=== PATIENT | female | born 1985 | race Caucasian/White ===

== ENCOUNTER 2018-12-12 01:52 | Emergency (ER) | payer OTHER ==
[2018-12-12 02:04] VITALS: O2SAT 100
[2018-12-12] MEDS ORDERED: Sodium Chloride 0.9% 500 ML IV ONE ×2 (02:24→02:33)
[2018-12-12] MEDS ORDERED: DiphenhydrAMINE 50 mg/ml Inj IVP STA (02:24)
[2018-12-12] MEDS ORDERED: DiphenhydrAMINE 50 mg/ml Inj ONE (02:32)
--- NOTE | 2018-12-12 03:21 | C.PDOC ---
History Of Present Illness 33 year old female, 17 weeks , with PMHx of migraine presents to the ED c/o frontal headache associated with nausea for the past 4 days. Patient was advised by OBGYN to take Tylenol every 4 hours which helped at first, but patient reports no relief now. Patient states she has been juggling school and taking care of her other kids, unsure if stress is triggering her headache. Patient also c/o photophobia. Patient denies fever, chills, neck pain, CP, SOB, palpitations, rash, weakness, numbness. No OB c/o at this time. Time Seen by Provider: 12/12/18 02:07 Chief Complaint (Nursing): Headache History Per: Patient History/Exam Limitations: no limitations Onset/Duration Of Symptoms: Days (4) Current Symptoms Are (Timing): Still Present Quality: "Pain" Preceeding Symptoms: Known Migraine Symptoms Associated Symptoms: Photophobia, Nausea Recent travel outside of the [place]: No Additional History Per: Patient Past Medical History Reviewed: Historical Data, Nursing Documentation, Vital Signs Vital Signs: Last Vital Signs Temp 98.4 F 12/12/18 02:01 Pulse 84 12/12/18 02:01 Resp 20 12/12/18 02:01 BP 113/72 12/12/18 02:01 Pulse Ox 100 12/12/18 02:01 - Medical History PMH: No Chronic Diseases Surgical History: No Surg Hx Family History: States: Unknown Family Hx - Social History Hx Alcohol Use: No Hx Substance Use: No - Immunization History Hx Tetanus Toxoid Vaccination: No Hx Influenza Vaccination: No Hx Pneumococcal Vaccination: No Review Of Systems Constitutional: Negative for: Fever, Chills Eyes: Positive for: Vision Change Cardiovascular: Negative for: Chest Pain, Palpitations Respiratory: Negative for: Cough, Shortness of Breath Gastrointestinal: Positive for: Nausea. Negative for: Vomiting, Abdominal Pain Musculoskeletal: Negative for: Neck Pain Skin: Negative for: Rash Neurological: Positive for: Headache. Negative for: Weakness, Numbness, Dizziness Physical Exam - Physical Exam Appears: Non-toxic, No Acute Distress Skin: Normal Color, Warm, Dry Head: Atraumatic, Normacephalic Eye(s): bilateral: Normal Inspection, PERRL, EOMI Oral Mucosa: Moist Neck: Normal ROM, No Midline Cervical Tenderness, Supple Chest: Symmetrical Cardiovascular: Rhythm Regular Respiratory: Normal Breath Sounds, No Rales, No Rhonchi, No Wheezing Gastrointestinal/Abdominal: Soft, No Tenderness, No Guarding, No Rebound Extremity: Normal ROM, No Tenderness, No Swelling Neurological/Psych: Oriented x3, Normal Speech, Normal Cognition, Other (non focal) Gait: Steady ED Course And Treatment O2 Sat by Pulse Oximetry: 100 (ON RA) Pulse Ox Interpretation: Normal Progress Note: Plan: - Bendaryl 25 mg IVP. - Reglan 10 mg IVP. - IV fluids. Patient reports improvement after medications were given. Patient no longer having a headache, nauseous. Patient advised to follow up with PMD/OBGYN. Disposition Counseled Patient/Family Regarding: Diagnosis, Need For Followup, Rx Given - Disposition Referrals: Edgardo Prado MD [Staff Provider] - Disposition: HOME/ ROUTINE Disposition Time: 03:14 Condition: GOOD Additional Instructions: Keep well hydrated Rest as much as possible Take reglan only as needed for headache when no relief by tylenol extra strength Return to ER if worse Prescriptions: Metoclopramide [Reglan] 1 tab PO TID PRN #10 tab PRN Reason: Headache Instructions: Migraine Headache (DC) Forms: [employer] (Albanian), School Excuse - Clinical Impression Clinical Impression: Headache, Migraine - PA / SOLUTIONS ARCHITECT CONSULTANT / Resident Statement MD/DO has reviewed & agrees with the documentation as recorded. - Scribe Statement The provider has reviewed the documentation as recorded by the Scribe Vinny Light All medical record entries made by the Scribe were at my direction and personally dictated by me. I have reviewed the chart and agree that the record accurately reflects my personal performance of the history, physical exam, medical decision making, and the department course for this patient. I have also personally directed, reviewed, and agree with the discharge instructions and disposition.
[2018-12-12 03:33] VITALS: BP 105/61; PULSE 72; RESP 16; TEMP 98.2
== END 2018-12-12 03:33 | disposition home or self-care (01) ==
LOC: C.ER 01:52
DX: O26.892 Other specified pregnancy related conditions, second trimester (principal); G43.909 Migraine, unspecified, not intractable, without status migrainosus; Z3A.17 17 weeks gestation of pregnancy
CPT/HCPCS: 96374; 96375; 99285; J1200; J2765; J7040

== ENCOUNTER 2019-01-14 11:00 | Emergency (ER) | payer OTHER ==
[2019-01-14 11:06] VITALS: RESP 18; TEMP 98
[2019-01-14] MEDS ORDERED: Sodium Chloride 0.9% 1,000 ML IV ONE (11:29)
[2019-01-14] MEDS ORDERED: Sodium Chloride 0.9% 1,000 ML ONE (12:11)
[2019-01-14 12:12] LABS: BASO % 0.4 % (0.0-2.0); EOS % 0.5 % (0.0-4.0); HEMOGLOBIN 10.5 g/dL (11.0-16.0); LYMPH # 0.8 K/uL (1.0-4.3); LYMPH % 10.8 % (20.0-40.0); MEAN CELL VOLUME 88.3 fL (81.0-99.0); MEAN CORPUSCULAR HEMOGLOBIN 31.1 pg (27.0-31.0); MEAN CORPUSCULAR HGB CONC 35.2 g/dL (33.0-37.0); MEAN PLATELET VOLUME 6.2 fL (7.2-11.7); MONO # 0.5 K/uL (0.0-0.8); MONO % 6.7 % (0.0-10.0); NEUT # 6.2 K/uL (1.8-7.0); NEUT % 81.6 % (50.0-75.0); RBC 3.38 Mil/uL (3.80-5.20); RED CELL DISTRIBUTION WIDTH 13.6 % (11.5-14.5); WHITE BLOOD COUNT 7.7 K/uL (4.8-10.8)
[2019-01-14 12:26] LABS: ALB/GLOB RATIO 1.1 (1.0-2.1); ALBUMIN 3.6 g/dL (3.5-5.0); ALT/SGPT 21 U/L (9-52); AST/SGOT 21 U/L (14-36); BLOOD UREA NITROGEN 5 mg/dL (7-17); GFR NON-AFRICAN AMERICAN > 60
[2019-01-14] MEDS ORDERED: Potassium Chloride 20 mEq ER Tab PO STA ×2 (12:27→17:31)
--- NOTE | 2019-01-14 13:13 | C.PDOC ---
History Of Present Illness 33 year old female presents to ED with complaint of fever (TM 101), diffuse myalgias, and chronic headache for the past 2 days. Patient is 21 weeks . She states she can feel the baby moving. Patient also complains of intermittent chest pain with pressure. She states that she has been experiencing SOB that comes and goes. Patient states that she took Tylenol. She denies cough, chills, and runny nose. Time Seen by Provider: 01/14/19 11:15 Chief Complaint (Nursing): Flu-like Symptoms History Per: Patient History/Exam Limitations: no limitations Onset/Duration Of Symptoms: Days (2), Intermittent Episodes Current Symptoms Are (Timing): Still Present Past Medical History Reviewed: Historical Data, Nursing Documentation, Vital Signs Vital Signs: Last Vital Signs Temp 98 F 01/14/19 11:01 Pulse 108 H 01/14/19 11:01 Resp 18 01/14/19 11:01 BP 111/73 01/14/19 11:01 Pulse Ox 98 01/14/19 11:01 Primary Care Provider: Edgardo Prado - Medical History PMH: No Chronic Diseases Surgical History: No Surg Hx Family History: States: Unknown Family Hx - Social History Hx Alcohol Use: No Hx Substance Use: No - Immunization History Hx Tetanus Toxoid Vaccination: No Hx Influenza Vaccination: No Hx Pneumococcal Vaccination: No Review Of Systems Constitutional: Positive for: Fever, Malaise ENT: Negative for: Nose Discharge, Nose Congestion Cardiovascular: Positive for: Chest Pain (chest pressure) Respiratory: Positive for: Shortness of Breath. Negative for: Cough Gastrointestinal: Negative for: Abdominal Pain, Diarrhea, Constipation Neurological: Positive for: Headache. Negative for: Dizziness Physical Exam - Physical Exam Appears: Well, Non-toxic, No Acute Distress Skin: Normal Color, Warm, Dry Head: Atraumatic, Normacephalic Throat: Normal, No Erythema, No Exudate Neck: Normal ROM, Supple Chest: Symmetrical, No Deformity, Tenderness (mild right sided reproducible chest wall tenderness) Cardiovascular: Rhythm Regular, Other (tachycardic) Respiratory: No Accessory Muscle Use, No Rales, No Rhonchi, No Wheezing Gastrointestinal/Abdominal: No Tenderness, Other (gravid) Extremity: Calf Tenderness, Capillary Refill (<2 seconds), No Swelling (calf swelling) Extremity: Bilateral: Atraumatic, Normal Color And Temperature, Normal ROM Pulses: Left Dorsalis Pedis: Normal, Right Dorsalis Pedis: Normal Neurological/Psych: Oriented x3, Normal Speech, Normal Cognition ED Course And Treatment - Laboratory Results Result Diagrams: 01/14/19 12:06 01/14/19 16:51 Lab Results: Total Bilirubin 0.2 mg/dL (0.2-1.3) 01/14/19 12:06 AST 21 U/L (14-36) 01/14/19 12:06 ALT 21 U/L (9-52) 01/14/19 12:06 Alkaline Phosphatase 60 U/L (38-126) 01/14/19 12:06 Total Protein 6.9 g/dL (6.3-8.3) 01/14/19 12:06 Albumin 3.6 g/dL (3.5-5.0) 01/14/19 12:06 Globulin 3.3 gm/dL (2.2-3.9) 01/14/19 12:06 Albumin/Globulin Ratio 1.1 (1.0-2.1) 01/14/19 12:06 ECG: Viewed By Me ECG Rhythm: Sinus Tachycardia ECG Interpretation: Normal Rate From EC O2 Sat by Pulse Oximetry: 98 (in RA) Pulse Ox Interpretation: Normal Medical Decision Making Medical Decision Makin female with flu like symptoms, and cp and sob intermittent getting worse. labs, ekg, cta chest to eval for pe, flu swab. 1310 pt found to have low potassium, po and iv ordered. pt agrees to cta; given pt's and symptoms of chest pain with sob, it is medically necessary to r/o pulmonary embolism. risks discussed with patient and . need for admission for low k discussed with patient and . i spoke to Dr Prado; recommends daily nst. i spoke to Dr Bronson clifford, she beatriz she does NST for patient more than 25 weeks, said pt needs only heart tones, given patient's info and will do it. [address] Becker for admission; recommends repeating potassium and getting magnesium level. order written. repeat levels discussed with Dr Becker; recommends another dose of potassium po and iv 2 g magnesium and outpatient discharge with pmd and trashman f/u in 1-2 days. discussed with patient and . nurses form [facility] came to ED; checked heart tones, got 125. pt reoirts feeling better. Disposition Counseled Patient/Family Regarding: Studies Performed, Diagnosis, Need For Followup, Rx Given - Disposition Referrals: Edgardo Prado MD [Staff Provider] - Disposition: HOME/ ROUTINE Disposition Time: 18:49 Condition: IMPROVED Additional Instructions: Drink increased fluids. Take Tylenol for pain if needed. Eat foods high in potassium- oranges. banana. Follow up with 1-[address] Prado and your primary care doctor without fail. 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 (Josefina Howard) - Scribe Statement The provider has reviewed the documentation as recorded by the Scribe (Josefina Howard) All medical record entries made by the Scribe were at my direction and personally dictated by me. I have reviewed the chart and agree that the record accurately reflects my personal performance of the history, physical exam, medical decision making, and the department course for this patient. I have also personally directed, reviewed, and agree with the discharge instructions and d isposition.
[2019-01-14] MEDS ORDERED: Potassium Chloride 20 mEq ER Tab PO ONE ×2 (13:28→17:40)
[2019-01-14] MEDS ORDERED: Iodixanol 320 MG/ML 100 ML BOTTLE IV ONE (14:01)
--- NOTE | 2019-01-14 16:10 | CT ---
Date of service: 01/14/2019 CTA chest PE protocol Indication: preg, cp and sob Technique: Contiguous axial images were obtained through the chest with intravenous contrast enhancement. Sagittal and coronal reconstructions were generated and reviewed. This CT exam was performed using 1 or more of the following dose reduction techniques: Automated exposure control, adjustment of the MAA and/or kV according to patient size, and/or use of iterative reconstruction technique. IV contrast: 100 mL Visipaque 320 IV Radiation dose (DLP): 418.94 MGy-cm. Comparison: None available Findings: Visualized portions of the inferior thyroid gland appear unremarkable. The mediastinal and hilar vascular structures appear within normal limits. The heart appears within normal limits of size. No large central or segmental pulmonary embolus evident. No focal consolidation. No pleural effusion. No pneumothorax. No suspicious pulmonary nodules measuring greater than 5 mm. Limited visualized portions of the upper abdomen appear grossly unremarkable. No acute osseous abnormality is detected. Impression: No large central or segmental pulmonary embolus identified.
[2019-01-14 16:58] VITALS: BP 110/70; PULSE 90
[2019-01-14] MEDS ORDERED: Magnesium Sulfate 1 gm in D5W 1 GM/100 ML BAG IVPB SCH (17:15)
[2019-01-14 18:44] VITALS: O2SAT 98
--- NOTE | 2019-01-15 11:53 | CARD ---
APPROVED REPORT Date of service: 01/14/2019 EKG Measurement Heart [id number] <Conclusion> Sinus tachycardia Otherwise normal ECG
== END 2019-01-14 19:25 | disposition home or self-care (01) ==
LOC: C.ER 11:00
DX: O99.512 Diseases of the respiratory system complicating pregnancy, second trimester (principal); J11.1 Influenza due to unidentified influenza virus with other respiratory manifestations; O26.892 Other specified pregnancy related conditions, second trimester; E87.6 Hypokalemia; E83.42 Hypomagnesemia; Z3A.21 21 weeks gestation of pregnancy
CPT/HCPCS: 36415; 71275; 80053; 83735; 84132; 85025; 87804; 93005; 96361; 96365; 99284; J3475; J3480; J7030; Q9967